=== PATIENT | female | born 1970 | race Two or more races ===

== ENCOUNTER 2021-08-20 16:26 | Outpatient (CLI) | payer OTHER, SELFPAY ==
--- NOTE | ~2021-08-20 | MM_ITS ---
EXAMINATION: MM screening doyle BI w gina HISTORY: Screening TECHNIQUE: Craniocaudal and mediolateral oblique 3-D tomosynthesis images were obtained and synthetic 2-D images were generated. CAD analysis was submitted and interpreted. COMPARISON: Comparison to multiple prior studies sequentially, with oldest reviewed study dated 02/2012. BREAST PARENCHYMAL COMPOSITION: The breasts are heterogeneously dense, which may obscure small masses . FINDINGS: There is no evidence of suspicious mass, calcification, or architectural distortion to sugg est malignancy in either breast. There has been no suspicious interval change. IMPRESSION: 1. No mammographic evidence of malignancy. 2. Recommend routine screening mammography in one year. BI-RADS Category 1: Negative Reviewed, dictated and finalized at location A.
== END 2021-08-20 16:27 | disposition home or self-care (01) ==
LOC: ANHIMG 16:29
PROVIDERS: PCP Family Medicine; Visit Provider Family Medicine
DX: Z12.31 Encounter for screening mammogram for malignant neoplasm of breast (principal)
CPT/HCPCS: 77063; 77067

== ENCOUNTER 2023-05-06 15:02 | Outpatient (CLI) | payer OTHER, SELFPAY ==
--- NOTE | ~2023-05-06 | MM_ITS ---
EXAMINATION: MM screening doyle BI w gina HISTORY: Screening mammogram TECHNIQUE: Craniocaudal and mediolateral oblique 3-D tomosynthesis images were obtained and synthetic 2-D images were generated. CAD analysis was submitted and interpreted. COMPARISON: 08/20/2021, 01/04/2019, 09/16/2015 bilateral screening mammogram examinations BREAST PARENCHYMAL COMPOSITION: The breasts are heterogeneously dense, which may obscure small masses . FINDINGS: There is no evidence of suspicious mass, calcification, or architectural distortion to sugg est malignancy in either breast. There has been no suspicious interval change. IMPRESSION: 1. No mammographic evidence of malignancy. 2. Recommend routine screening mammography in one year. BI-RADS Category 1: Negative Reviewed, dictated and finalized at location A.
== END 2023-05-06 15:03 | disposition home or self-care (01) ==
LOC: ANHIMG 15:04
PROVIDERS: PCP Family Medicine; Visit Provider Nurse Practitioner
DX: Z12.31 Encounter for screening mammogram for malignant neoplasm of breast (principal)
CPT/HCPCS: 77063; 77067

== ENCOUNTER 2024-08-22 08:22 | Outpatient (CLI) | payer OTHER, SELFPAY ==
--- NOTE | ~2024-08-22 | MM_ITS ---
EXAMINATION: MM screening doyle BI w gina HISTORY: Screening TECHNIQUE: Craniocaudal and mediolateral oblique 3-D tomosynthesis images were obtained and synthetic 2-D images were generated. CAD analysis was submitted and interpreted. COMPARISON: Comparison to multiple prior studies sequentially, with oldest reviewed study dated 09/07. BREAST PARENCHYMAL COMPOSITION: Dense: The breasts are heterogeneously dense, which may obscure small masses FINDINGS: There is no evidence of suspicious mass, calcification, or architectural distortion to sugg est malignancy in either breast. There has been no suspicious interval change. IMPRESSION: 1. No mammographic evidence of malignancy. 2. Recommend routine screening mammography in one year. BI-RADS Category 1: Negative Reviewed, dictated and finalized at location B.
== END 2024-08-22 08:23 | disposition home or self-care (01) ==
LOC: ANHIMG 08:26
PROVIDERS: PCP Family Medicine; Visit Provider Nurse Practitioner
DX: Z12.31 Encounter for screening mammogram for malignant neoplasm of breast (principal)
CPT/HCPCS: 77063; 77067

== ENCOUNTER 2025-01-17 10:59 | Outpatient (CLI) | payer BC, SELFPAY ==
--- NOTE | ~2025-01-17 | DEXA_ITS ---
Bone Density Report Name: CLARISSA VARMA Age: 54 Sex: Female Ethnicity: White Date of : 1970 Indication: postmenopausal; screening for osteoporosis; Referring Provider: BLESSING GUTIERREZ Study: Bone densitometry was performed. Exam Date: January 17, 2025 Accession number: [id number] Bone Density: Region BMD T-score Z-score Classification AP Spine(L1-L4) 0.744 -2.8 -1.6 Osteoporosis Femoral Neck (Left) 0.632 -2.0 -0.9 Osteopenia Total Hip (Left) 0.767 -1.4 -0.7 Osteopenia Femoral Neck (Right) 0.587 -2.4 -1.3 Osteopenia Total Hip (Right) 0.780 -1.3 -0.6 Osteopenia Total Hip Mean 0.774 -1.4 -0.7 Osteopenia World Health Organization criteria for BMD impression classify patients as: Normal (T-score at or above -1.0), Osteopenia (T-score between -1.0 and -2.5), or Osteoporosis (T-score at or below -2.5). 10-year Fracture Risk: FRAX not reported because: Some T-score for Spine Total or Hip Total or Femoral Neck at or below -2.5 Clinical Information Provided by Patient: Has used the following medications: HRT (i.e. estrogen/hormone therapy), Vitamin D Patient maximum height was 65 Menopause Age: 51 No regular weight bearing exercise Drinks caffeinated beverages Onset of menses at age 11 Number of children 2 Impression: The patient has osteoporosis, based on the Total Spine T-score. Discussion: INCREASED RISK OF FRACTURE. BONE DENSITY IS UNDESIRABLY LOW AT ONE OR MORE SKELETAL SITES, CONSISTENT WITH POSTMENOPAUSAL OSTEOPOROSIS. This patient's lowest T-score meets the World Health Organization's (WHO) criteria for osteoporosis at one or more sites (T-score -2.5 or below). In untreated patients, the risk of osteoporotic fracture increases approximately two-fold for each 1.0 SD decrease in T-score. Low bone density is not the only risk factor for fracture; also consider factors such as patient's age, frailty or poor health, risk of falling, risk of injury, previous osteoporotic fracture, family history of osteoporosis, cigarette smoking, low body weight, etc. Not everyone with low bone mineral density has osteoporosis; osteomalacia and other metabolic bone disorders should also be considered. Patients who have osteoporosis should be evaluated for specific diseases and conditions (secondary causes) that may cause or contribute to bone loss. The [place] [employer] (AACE) and National Osteoporosis Foundation (NOF) recommend pharmacologic intervention for all postmenopausal women whose T-score is in this range. The patient should follow a healthful lifestyle (good nutrition with adequate calcium and vitamin D, and appropriate weight-bearing exercise). Follow-Up: Consider a repeat BMD and Vertebral Fracture Assessment (VFA) exam in 2 years or sooner if medically necessary, to reassess this patient's status. Reported by: SABINO on 01/17/2025 11:36:00 AM. Reviewed, dictated and finalized at location [facility]
--- OUTSIDE RECORDS SUMMARY | 2025-01-17 12:49 | XMS_ITS | Clinical Summary ---
Author Organization [facility] Address [address] [place] [address] Care Team Providers Care Vegetable Specker Name Role Phone Audelia Sterling MD Primary Care Provider [phone] Source Comments [facility],non-owned Affiliates and Associated Physician Practices is amultiple site organization consisting of ambulatory clinics and hospital sitesin [place], [place], [place] and [place]. This disclosure is being madepursuant to the Care Everywhere program and may not contain all information available regarding this patient. Last updated 18.[facility] Allergies Active Allergy Reactions Criticality Noted Date Comments Penicillins Unknown,Rash Medium 09/06/2018 Medications * Be aware that medications may not be up to date on this document. Alwaysverify current medications with the patient. Medication Sig Dispensed Refills Start Date End Date Status methIMAzole (Tapazole) 5 MG tablet Take 1 (one) tablet by mouth once daily 90 tablet 1 11/22/2024 Active Active Problems Problem Noted Date Diagnosed Date Hyperthyroidism 06/18/2024 Multiple thyroid nodules 06/18/2024 Encounters Date Type Department Care Team Description 11/22/2024 Refill [facility] - Endocrinology [address], [address] [place] [address] Jimmie Gonzalez MD MEDICATION REFILL from Last 3 Months Family History Medical History Relation Name Comments COPD - Chronic Obstructive Pulmonary Disease Father Hypertension Mother Thyroid Disease Mother thyroid nddu le, benign Relation Name Status Comments Father Alive Mother Alive Social History Tobacco Use Types Packs/Day Years Used Date Smoking Tobacco: Never Smokeless Tobacco: Never Tobacco Cessation:Counseling Given: Not Answered Alcohol Use Standard Drinks/Week Comments Yes 0 (1 standard drink = 0.6 oz pur e alcohol) occasionally Sex and Gender Information Value Date Recorded Sex Assigned at Not on file Gender Identity Not on file Sexual Orientation Not on file Last Filed Vital Signs Vital Sign Reading Time Taken Comments Blood Pressure 100/66 10/11/2024 11:30 AM ICEBOX MAN Pulse - - Temperature - - Respiratory Rate - - Oxygen Saturation - - Inhaled Oxygen Concentration - - Weight 88.5 kg (195 lb) 10/11/2024 11:30 AM ICEBOX MAN Height 165.1 cm (5' 5 ) 10/11/2024 11:30 AM ICEBOX MAN Body Mass Index 32.45 10/11/2024 11:30 AM ICEBOX MAN Plan of Treatment Upcoming Encounters Date Type Department Care Team (Late st Contact Info) Description 02/18/2025 1:20 PM CDT Office Visit [facility] - Endocrinology [address] [place], [place] [phone] Jimmie Gonzalez MD [address] [place], [place] [phone] 03/27/2025 12:00 PM CDT Office Visit [facility] - Internal Medicine [address] [place] [id number] Isaiah Richards MD [address] [place] [id number] Health Maintenance Due Date Last Done Comments COLON MONITORING 1969 COLONOSCOPY - COLON CA SCREENING 1969 CT COLONOGRAPHY - COLON CA SCREENING 1969 FIT - COLON CA SCREENING 1969 FLEX SIG - COLON CA SCREENING 1969 LIPID TESTING 1969 HIV SCREENING 1984 HEPATITIS C SCREENING 07/16/1987 DTAP/TDAP/TD VACCINES (1 - Tdap) 1988 HEPATITIS B VACCINE (1 of 3 - 19+ 3-dose series) 1988 PNEUMOCOCCAL VACCINE 50+ (1 of 1 - PCV) 2019 ZOSTER VACCINE (1 of 2) 2019 MAMMOGRAM 01/04/2021 01/04/2019 PAP SMEAR 03/06/2022 03/06/2019 DEPRESSION SCREENING 11/07/2024 COLOGUARD (AGES 45-75) - COLON CA SCREENING 12/29/2025 12/29/2022 Colorectal Cancer Screening 12/29/2025 SCREENING FOR DIABETES 10/11/2027 , 07/25/2024, 06/18/2024 COVID-19 VACCINE Completed 07/10/2024, 05/2024, 07/14/2022, Additional history exists INFLUENZA VACCINE Completed 07/10/2024, , 08/30/2021, Additional history exists HIB VACCINE Aged Out No longer eligi ble based on patient's age to complete this topic HPV VACCINE Aged Out No longer eligi ble based on patient's age to complete this topic MENINGOCOCCAL (Group B) VACCINE SHARED DECISION-MAKING Aged Out No longer eligible based on patient's age to complete this topic MENINGOCOCCAL GROUPS A/C/Y/W VACCINE Aged Out No longer eligible based on patient's age to complete this topic PNEUMOCOCCAL VACCINE Aged Out No long er eligible based on patient's age to complete this topic Procedures Procedure Name Priority Date/Time Associated Diagnosis Comments COMPREHENSIVE METABOLIC PANEL Routine 10/11/2024 12:23 PM ICEBOX MAN Hyperthyroidism from Last 3 Months or Most Recently Relevant to Health Maintenance Results * (ABNORMAL) COMPREHENSIVE METABOLIC PANEL (10/11/2024 12:23 PM ICEBOX MAN) Glucose 97 70 - 99 mg/dL [facility] ACCOUNT BILL BUN 14 7 - 26 mg/dL [facility] ACCOUNT BILL Creatinine 0.81 0.57 - 1.11 mg/dL [facility] ACCOUNT BILL eGFR by CKD-EPI 86(L) >=90 mL/min/1.7 3 m2 [facility] ACCOUNT BILL Sodium 141 136 - 145 mmol/L [facility] ACCOUNT BILL Potassium 4.3 3.5 - 5.1 mmol/L [facility] ACCOUNT BILL Chloride 107 98 - 107 mmol/L [facility] ACCOUNT BILL CO2 25 22 - 29 mmol/L [facility] ACCOUNT BILL Calcium 8.8 8.4 - 10.4 mg/dL [facility] ACCOUNT BILL Protein Total 6.7 6.4 - 8.3 gm/dL [facility] ACCOUNT BILL Albumin 3.4 3.4 - 5.0 gm/dL [facility] ACCOUNT BILL Bilirubin Total 0.3 0.2 - 1.2 mg/dL [facility] ACCOUNT BILL Alkaline Phosphatase 139 40 - 150 U/L [facility] ACCOUNT BILL AST 14 5 - 34 U/L [facility] ACCOUNT BILL ALT 10 0 - 55 U/L [facility] ACCOUNT BILL Blood BLOOD SPECIMEN / Unknown 10/11/2024 12:23 PM ICEBOX MAN 10/11/2024 Narrative [facility] ACCOUNT BILL - 10/11/2024 8:07 PM ICEBOX MAN Performed at: [address] [place] [id number] Corner Cutter: Kieran Beasley MD, Phone: [phone] Jimmie Gonzalez MD LAB - CHEMISTRY ORD ERABLES [facility] ACCOUNT BILL [address] [place] [address] from Last 3 Months or Most Recently Relevant to Health Maintenance Care Teams Vegetable Specker Relationship Specialty Start Date End Date Audelia Sterling MD [address] [place] [address] PCP - General Family Medicine 02/14/24
--- OUTSIDE RECORDS SUMMARY | 2025-01-17 12:49 | XMS_ITS | Referral Summary ---
Author Organization [facility] Address [address] [facility] [place] [address] Care Team Providers Care Porter Baggage Name Role Phone Audelia Sterling MD Primary Care Provider [phone] Source Comments [facility],non-[facility] Affiliates and Associated Physician Practices is amultiple site organization consisting of ambulatory clinics and hospital sitesin [place], [place], [place]. This disclosure is being madepursuant to the Care Everywhere program and may not contain all information available regarding this patient. Last updated 18.[facility] Encounters Date Type Department Care Team Description 11/22/2024 Refill [facility] - Endocrinology [address] [place] [address], [address] [place] [phone] Jimmie Gonzalez MD MEDICATION REFILL from Last 3 Months Allergies Active Allergy Reactions Criticality Noted Date [...] Date Hyperthyroidism 06/18/2024 Multiple thyroid nodules 06/18/2024 Social History Tobacco Use Types Packs/Day Years [...] Comments Blood Pressure 100/66 10/11/2024 11:30 AM CHEMICAL OPERATOR Pulse - - Temperature - - Respiratory Rate - - Oxygen Saturation - - Inhaled Oxygen Concentration - - Weight 88.5 kg (195 lb) 10/11/2024 11:30 AM CHEMICAL OPERATOR Height 165.1 cm (5' 5 ) 10/11/2024 11:30 AM CHEMICAL OPERATOR Body Mass Index 32.45 10/11/2024 11:30 AM CHEMICAL OPERATOR Plan of Treatment Upcoming Encounters Date Type Department Care Team (Late st Contact Info) Description 02/18/2025 1:20 PM CDT Office Visit [facility] - Endocrinology [address] [place], [place] [phone] Jimmie Gonzalez MD [address] [place], [place] [phone] 03/27/2025 12:00 PM CDT Office Visit [facility] - Internal Medicine [address] [place], [place] [phone] Isaiah Richards MD [address] [place], [place] [phone] Procedures Procedure Name Priority Date/Time Associated Diagnosis Comments COMPREHENSIVE METABOLIC PANEL Routine 10/11/2024 12:23 PM CHEMICAL OPERATOR Hyperthyroidism from Last 3 Months or Most Recently Relevant to Health Maintenance Results * (ABNORMAL) COMPREHENSIVE METABOLIC PANEL (10/11/2024 12:23 PM CHEMICAL OPERATOR) Glucose 97 70 - 99 mg/dL [facility] [...] BLOOD SPECIMEN / Unknown 10/11/2024 12:23 PM CHEMICAL OPERATOR 10/11/2024 Narrative [facility] ACCOUNT BILL - 10/11/2024 8:07 PM CHEMICAL OPERATOR Performed at: [address] [place] [id number] Rock Loader: Kieran Beasley MD, Phone: [phone] Jimmie Gonzalez MD LAB - CHEMISTRY ORD ERABLES [facility] ACCOUNT BILL [address] [place] [address] from Last 3 Months or Most Recently Relevant to Health Maintenance Care Teams Porter Baggage Relationship Specialty Start Date End Date Audelia Sterling MD [address] [place] [address] PCP - General Family Medicine 02/14/24
--- OUTSIDE RECORDS SUMMARY | 2025-01-17 12:49 | XMS_ITS | Patient Health Summary ---
Author Organization [facility] Address [address] [place] [address] Care Team Providers Care Head Of Music Name Role Phone Audelia Sterling MD Primary Care Provider [phone] Note from [facility],non-owned Affiliates and Associated Physician Practices is amultiple site organization consisting of ambulatory clinics and hospital sitesin [place], [place], [place] and [place]. This disclosure is being madepursuant to the Care Everywhere program and may not contain all information available regarding this patient. Last updated 18.[facility] Allergies * Penicillins(Unknown,Rash) -Medium Criticality Medications * Be aware that medications may not be up to date on this document. Alwaysverify current medications with the patient. * methIMAzole (Tapazole) 5 MG tablet(Started 11/22/2024) Take 1 (one) tablet by mouth once daily 1 refill by 11/22/2025 Active Problems Problem Noted Date Diagnosed Date [...] Comments Blood Pressure 100/66 10/11/2024 11:30 AM MECHANICAL ENGINEERING DRAFTSPERSON Pulse - - Temperature - - Respiratory Rate - - Oxygen Saturation - - Inhaled Oxygen Concentration - - Weight 88.5 kg (195 lb) 10/11/2024 11:30 AM MECHANICAL ENGINEERING DRAFTSPERSON Height 165.1 cm (5' 5 ) 10/11/2024 11:30 AM MECHANICAL ENGINEERING DRAFTSPERSON Body Mass Index 32.45 10/11/2024 11:30 AM MECHANICAL ENGINEERING DRAFTSPERSON Procedures * T3 FREE(Performed 10/11/2024) Performed for Hyperthyroidism * COMPREHENSIVE METABOLIC PANEL(Performed 10/11/2024) Performed for Hyperthyroidism * T4 FREE(Performed 10/11/2024) Performed for Hyperthyroidism * TSH(Performed 10/11/2024) Performed for Hyperthyroidism * T3 FREE(Performed 07/25/2024) Performed for Hyperthyroidism * COMPREHENSIVE METABOLIC PANEL(Performed 07/25/2024) Performed for Hyperthyroidism * TSH(Performed 07/25/2024) Performed for Hyperthyroidism * T4 FREE(Performed 07/25/2024) Performed for Hyperthyroidism * T3 FREE(Performed 06/18/2024) Performed for Hyperthyroidism * COMPREHENSIVE METABOLIC PANEL(Performed 06/18/2024) Performed for Hyperthyroidism * T4 FREE(Performed 06/18/2024) Performed for Hyperthyroidism * TSH(Performed 06/18/2024) Performed for Hyperthyroidism * NM THYROID UPTAKE AND SCAN(Performed 03/15/2024) Performed for Hyperthyroidism * IMAGING/RADIOLOGY/XRAY RESULTS ORDER(Performed 03/13/2024) * THYROGLOBULIN PANEL(Performed 02/23/2024) Performed for Borderline abnormal TFTs, Thyroid nodule * FSH(Performed 02/23/2024) Performed for Borderline abnormal TFTs, Thyroid nodule * PROLACTIN(Performed 02/23/2024) Performed for Borderline abnormal TFTs, Thyroid nodule * THYROID STIMULATING IMMUNOGLOBULIN (TSI)(Performed 02/23/2024) Performed for Borderline abnormal TFTs, Thyroid nodule * TSH(Performed 02/23/2024) Performed for Borderline abnormal TFTs, Thyroid nodule * T3 FREE(Performed 02/23/2024) Performed for Borderline abnormal TFTs, Thyroid nodule * T4 FREE(Performed 02/23/2024) Performed for Borderline abnormal TFTs, Thyroid nodule * LAB RESULTS ORDER(Performed 06/25/2023) * T3 FREE (EXTERNAL RESULT)(Performed 06/25/2023) * T4 FREE (EXTERNAL RESULT ENTRY)(Performed 06/25/2023) * TSH (EXTERNAL RESULT ENTRY)(Performed 06/25/2023) Results * T3 FREE (10/11/2024 12:24 PM MECHANICAL ENGINEERING DRAFTSPERSON) Only the most recent of4 resultswithin the time period is included. T3 Free 3.00 1.70 - 3.70 pg/mL [facility] ACCOUNT BILL Blood BLOOD SPECIMEN / Unknown 10/11/2024 12:24 PM MECHANICAL ENGINEERING DRAFTSPERSON 10/11/2024 Narrative [facility] ACCOUNT BILL - 10/11/2024 8:07 PM MECHANICAL ENGINEERING DRAFTSPERSON Performed at: [address] [place] [address] [id number] Coin Collector: Kieran Beasley MD, Phone: [phone] Jimmie Gonzalez MD LAB - CHEMISTRY ORD ERABLES [facility] ACCOUNT BILL [address] [place] [address] * (ABNORMAL) COMPREHENSIVE METABOLIC PANEL (10/11/2024 12:23 PM MECHANICAL ENGINEERING DRAFTSPERSON) Only the most recent of3 resultswithin the time period is included. Glucose 97 70 - 99 mg/dL [facility] [...] BLOOD SPECIMEN / Unknown 10/11/2024 12:23 PM MECHANICAL ENGINEERING DRAFTSPERSON 10/11/2024 Narrative [facility] ACCOUNT BILL - 10/11/2024 8:07 PM MECHANICAL ENGINEERING DRAFTSPERSON Performed at: [address] [place] [id number] Coin Collector: Kieran Beasley MD, Phone: [phone] Jimmie Gonzalez MD LAB - CHEMISTRY ORD ERABLES Performing Organization Address City/[facility]/ZIP Co de Phone Number [facility] ACCOUNT BILL [address] [place] [address] * TSH (10/11/2024 12:23 PM MECHANICAL ENGINEERING DRAFTSPERSON) Only the most recent of4 resultswithin the time period is included. TSH 0.9266 0.35 - 4.94 uIU/mL [facility] ACCOUNT BILL Blood BLOOD SPECIMEN / Unknown 10/11/2024 12:23 PM MECHANICAL ENGINEERING DRAFTSPERSON 10/11/2024 Narrative [facility] ACCOUNT BILL - 10/11/2024 8:07 PM MECHANICAL ENGINEERING DRAFTSPERSON Performed at: [address] [place] [address] [id number] Coin Collector: Kieran Beasley MD, Phone: [phone] Jimmie Gonzalez MD LAB - CHEMISTRY ORD ERABLES Performing Organization Address City/[facility] Co de Phone Number [facility] ACCOUNT BILL [address] [place] [address] * T4 FREE (10/11/2024 12:23 PM MECHANICAL ENGINEERING DRAFTSPERSON) Only the most recent of4 resultswithin the time period is included. T4 Free 0.86 0.70 - 1.50 ng/dL [facility] ACCOUNT BILL Blood BLOOD SPECIMEN / Unknown 10/11/2024 12:23 PM MECHANICAL ENGINEERING DRAFTSPERSON 10/11/2024 Narrative [facility] ACCOUNT BILL - 10/11/2024 8:07 PM MECHANICAL ENGINEERING DRAFTSPERSON Performed at: [address] [place] [phone] Coin Collector: Kieran Beasley MD, Phone: [phone] Jimmie Gonzalez MD LAB - CHEMISTRY ORD ERABLES [facility] ACCOUNT [place]ILL [place] [address] * NM THYROID UPTAKE AND SCAN (03/15/2024 8:59 AM CDT) Anatomical Region Laterality Modality Chest Nuclear Medicine 03/15/2024 10:1 5 AM CDT Impressions 03/15/2024 10:24 AM CDT Impression: 1. Large autonomous nodule in the right lobe of the thyroid gland 2. Elevated 24 hours thyroid uptake of 35.1%. > Interpreting Provider: Gretta West DO on 03/15/2024 10:24 AM Narrative 03/15/2024 10:24 AM CDT PROCEDURE: NM THYROID UPTAKE AND SCAN DATE/TIME OF EXAM: 03/15/2024 8:59 AM CLINICAL INFORMATION: None relevant/not provided if blank. Indication: E05.90: Thyrotoxicosis, unspecified without thyrotoxic crisis or storm COMPARISON: Ultrasound report from 03/13/2024 HISTORY: 53-year-old with hyperthyroidism. TECHNIQUE: 300 uCi I-123 was administered orally and multiple images of the neck were obtained after 4 hours. The patient returned the following day and counts were measured. FINDINGS: Images of the thyroid gland demonstrate the the left lobe is small with minimal uptake at the upper pole. The right lobe is larger with a large intensely avid dominant nodule in the upper to mid pole. This nodule suppresses the uptake of the remainder of the thyroid gland. The 24-hour uptake is 35.1% (normal is 10-30%). Procedure Note Gretta West DO - 03/15/2024 PROCEDURE: NM THYROID UPTAKE AND SCAN DATE/TIME OF EXAM: 03/15/2024 8:59 AM CLINICAL INFORMATION: None relevant/not provided if blank. Indication: E05.90: Thyrotoxicosis, unspecified without thyrotoxiccrisis or storm COMPARISON: Ultrasound report from 03/13/2024 HISTORY: 53-year-old with hyperthyroidism. TECHNIQUE: 300 uCi I-123 was administered orally and multiple images ofthe neck were obtained after 4 hours. The patient returned the following day and counts were measured. FINDINGS: Images of the thyroid gland demonstrate the the left lobe is small with minimal uptake at the upper pole. The right lobe is largerwith a large intensely avid dominant nodule in the upper to mid pole. This nodule suppresses the uptake of the remainder of the thyroid gland. The 24-hour uptake is 35.1% (normal is 10-30%). Impression: 1. Large autonomous nodule in the right lobe of the thyroid gland 2. Elevated 24 hours thyroid uptake of 35.1%. > Interpreting Provider: Gretta West DO on 03/15/2024 10:24 AM Jimmie Gonzalez MD NM ORDERABLES * IMAGING RADIOLOGY XRAY RESULTS ORDER (03/13/2024 7:48 AM CDT) Anatomical Region Laterality Modality Other Jimmie Gonzalez MD IMAGING * (ABNORMAL) THYROGLOBULIN PANEL (02/23/2024 1:35 PM CDT) Thyroglobulin Antibody <1 < or = 1 IU/mL [facility] Thyroglobulin 93.9(H) ng/mL [facility] Comment: Reference Range: Intact Thyroid 2.8-40.9 Athyrotic <0.1 Note: Abnormal flagging is based on the reference interval for patients with intact thyroid. This test was performed using the Branden Nano chemiluminescent method. Values obtained from different assay methods cannot be used interchangeably. Thyroglobulin levels, regardless of value, should not be interpreted as absolute evidence of the presence or absence of disease. For additional information, please refer to http://education.Fullbridge.WakeMate/faq/PZN479 (This link is being provided for informational/ educational purposes only.) Test Performed at: [facility] [address] [address] GUILLERMO SPEARS Blood BLOOD SPECIMEN / Unknown 02/23/2024 1:35 PM CDT 02/23/2024 1:36 PM CDT Jimmie Gonzalez MD LAB - CHEMISTRY ORD ERABLES [facility] [place] [address] * THYROID STIMULATING IMMUNOGLOBULIN (TSI) (02/23/2024 1:35 PM CDT) Thyroid Stimulating Immunoglobulin <89 <140 % baseline [facility] Comment: Thyroid stimulating immunoglobulins (TSI) can engage the TSH receptors resulting in hyperthyroidism in Graves' disease patients. TSI levels can be useful in monitoring the clinical outcome of Graves' disease as well as assessing the potential for hyperthyroidism from maternal- transfer. TSI results greater than or equal to (>=) 140% of the Reference Control are considered positive. NOTE: A serum TSH level greater than 350 micro-International Units/mL can interfere with the TSI bioassay and potentially give false positive results. Patients who are and are suspected of having hyperthyroidism should have both TSI and human Chorionic Gonadotropin (hCG) tests measured. A serum hCG level greater than 40,625 mIU/mL can interfere with the TSI bioassay and may give false negative results. In these patients it is recommended that a second TSI be obtained when the hCG concentration falls below 40,625 mIU/mL (usually after approximately 20-weeks gestation). The analytical performance characteristics of this assay have been determined by [facility]. The modifications have not been cleared or approved by the FDA. This assay has been validated pursuant to the CLIA regulations and is used for clinical purposes. Test Performed at: [facility] [address] [place] [address] TARA SURESH MD,PHD,IVANA Blood BLOOD SPECIMEN / Unknown 02/23/2024 1:35 PM CDT 02/23/2024 1:36 PM CDT Jimmie Gonzalez MD LAB - CHEMISTRY ORD ERABLES [facility] [address] [place] [address] * PROLACTIN (02/23/2024 1:35 PM CDT) Prolactin 4.9 ng/mL [facility] Comment: Reference Range Females Non- 3.0-30.0 10.0-209.0 Postmenopausal 2.0-20.0 Test Performed at: [facility] [address] [place] [address] KERRY CARDOSO MD Blood BLOOD SPECIMEN / Unknown 02/23/2024 1:35 PM CDT 02/23/2024 1:36 PM CDT Jimmie Gonzalez MD LAB - CHEMISTRY ORD ERABLES Performing Organization Address [facility]/ZIP Co de Phone Number [address] [address] * FSH (02/23/2024 1:35 PM CDT) Pathologist [facility] FSH 107.9 mIU/mL [facility] Comment: Reference Range Follicular Phase 2.5-10.2 Mid-cycle Peak 3.1-17.7 Luteal Phase 1.5- 9.1 Postmenopausal 23.0-116.3 Test Performed at: [place] [address] KERRY CARDOSO MD Blood BLOOD SPECIMEN / Unknown 02/23/2024 1:35 PM CDT 02/23/2024 1:36 PM CDT Jimmie Gonzalez MD LAB - CHEMISTRY ORD ERABLES Performing Organization Address [facility] Co de Phone Number [place] [phone] * T3 FREE (EXTERNAL RESULT) (06/25/2023) Pathologist [facility] T3 Free (EXTERNAL RESULT) 4.1 Blood 06/25/2023 Provider Unknown LAB - CHEMISTRY ORDE RABLES * TSH (EXTERNAL RESULT ENTRY) (06/25/2023) Pathologist [facility] TSH (EXTERNAL RESULT) 0.01 uIU/mL Blood BLOOD SPECIMEN / Unknown 06/25/2023 Provider Unknown LAB - CHEMISTRY ORDE RABLES * T4 FREE (EXTERNAL RESULT ENTRY) (06/25/2023) Pathologist [facility] T4 Free (EXTERNAL RESULT) 1 ng/dl Blood BLOOD SPECIMEN / Unknown 06/25/2023 Provider Unknown LAB - CHEMISTRY MARIAM [facility] * LAB RESULTS ORDER (06/25/2023) Provider Unknown LAB - THERAPEUTIC DR RAMÍREZ MONITORING ORDERABLES Care Teams Head Of Music Relationship Specialty Start Date End Date Audelia Sterling MD [address] [place] [address] PCP - General Family Medicine 02/14/24
--- OUTSIDE RECORDS SUMMARY | 2025-01-17 12:49 | XMS_ITS | Data Portability ---
Author Organization [place] [facility] [employer], Main Office Address [address] [place] [address] Care Team Providers Care Control Room Agent Name Role Phone LULÚ STERLING Referring Provider [phone] Assessment No assessment recorded. Plan of Treatment Reminders Order Date Submit Date Provider Last Modified By Organization Details Last Modified Time Details Appointments None recorded. Lab CBC w/ auto diff 2022 023 ZACK Hernandez, [id number], [place], [address], 3 06:35:19 CMP, serum or plasma 2022 023 ZACK Hernandez, [id number], [place], [address], 3 06:35:16 vitamin B12 + folate, serum or blood 2022 023 ZACK Hernandez, [id number], [place], [address], 3 06:35:22 cortisol, am, serum 2022 023 ZACK Hernandez, [id number], [place], [address], 3 06:35:21 acth, plasma 2022 023 ZACK Hernandez, [id number], [place], [address], 3 06:35:17 KAILASH (antinuclea r antibodies) screen, serum 2022 023 [facility], [address], [place], [address], 3 11:32:15 TSH + free T4, serum 2022 023 [place] [facility], [address], [place], [address], 3 06:35:23 T3, free, serum or plasma 2022 023 [place] [facility], [address], [place], [address], 3 06:35:23 thyroid peroxidase (tpo) Ab, serum 2022 023 [facility], [address], [place], [address], 3 06:35:21 iodine, serum 2022 023 [facility], [address], [place], [address], 3 06:35:18 Referral None recorded. Procedures None recorded. Surgeries None recorded. Imaging None recorded. Medication Orders None recorded. Patient TargetsNo targets recorded. Patient InstructionsNo instructions recorded. Reason for Referral None Reported. Results Created Date Observation Date Name Description Value Unit Range Abnormal Flag Note LastModifiedBy Organization Detail LastModifiedTime 04/22/2004/29/2023 COMPR EHENS PATSY METAB OLIC PANEL glucose 92 mg/dL 65-99 normal Fasti ng refer ence inter bob Not Available [employer] [facility] [address] [place], [address], 04/29/2023 06:35:16 04/22/2004/29/2023 COMPR EHENS PATSY METAB OLIC PANEL urea nitrogen (BUN) 13 mg/dL 7-25 normal Not Available [employer] [facility] [address] [place], [address], 04/29/2023 06:35:16 04/22/2004/29/2023 COMPR EHENS PATSY METAB OLIC PANEL creatinine 0.70 mg/dL 0.50-1 .03 normal Not Available [address], [address], 04/29/2023 06:35:16 04/22/2004/29/2023 COMPR EHENS PATSY METAB OLIC PANEL eGFR 103 mL/mi n/1.7 3m2 > or = 60 normal The eGFR is based on the CKD-E PI 2020 equat ion. To calcu late the new eGFR from a previ ous Creat inine or Cysta tin C resul t, go to https ://amber millan.chrissy trevizo/sarthak kelleress evelineal s/ kdoqi /gfr% 5Fcal culat or Not Available [address], [address], 04/29/2023 06:35:16 04/22/2004/29/2023 COMPR EHENS PATSY METAB OLIC PANEL BUN/creatini ne ratio NOT APPLIC ABLE (calc ) 6-22 Not Available [address], [address], 04/29/2023 06:35:16 04/22/2004/29/2023 COMPR EHENS PATSY METAB OLIC PANEL sodium 143 mmol/ L 135-14 6 normal Not Available [address], [address], 04/29/2023 06:35:16 04/22/2004/29/2023 COMPR EHENS PATSY METAB OLIC PANEL potassium 4.2 mmol/ L 3.5-5. 3 normal Not Available [address], [address], 04/29/2023 06:35:16 04/22/2004/29/2023 COMPR EHENS PATSY METAB OLIC PANEL chloride 106 mmol/ L 98-110 normal Not Available [address], [address], 04/29/2023 06:35:16 04/22/2004/29/2023 COMPR EHENS PATSY METAB OLIC PANEL carbon dioxide 30 mmol/ L 20-32 normal Not Available [address], [address], 04/29/2023 06:35:16 04/22/2004/29/2023 COMPR EHENS PATSY METAB OLIC PANEL calcium 9.3 mg/dL 8.6-10 .4 normal Not Available [address], [address], 04/29/2023 06:35:16 04/22/2004/29/2023 COMPR EHENS PATSY METAB OLIC PANEL protein, total 6.7 g/dL 6.1-8. 1 normal Not Available [address], [address], 04/29/2023 06:35:16 04/22/2004/29/2023 COMPR EHENS PATSY METAB OLIC PANEL albumin 3.9 g/dL 3.6-5. 1 normal Not Available [address], [address], 04/29/2023 06:35:16 04/22/2004/29/2023 COMPR EHENS PATSY METAB OLIC PANEL globulin 2.8 g/dL_ (calc ) 1.9-3. 7 normal Not Available [address], [address], 04/29/2023 06:35:16 04/22/2004/29/2023 COMPR EHENS PATSY METAB OLIC PANEL albumin/glob ulin ratio 1.4 (calc ) 1.0-2. 5 normal Not Available [address] [place], [address], 04/29/2023 06:35:16 04/22/2004/29/2023 COMPR EHENS PATSY METAB OLIC PANEL bilirubin, total 0.5 mg/dL 0.2-1. 2 normal Not Available [address], [address], 04/29/2023 06:35:16 04/22/2004/29/2023 COMPR EHENS PATSY METAB OLIC PANEL alkaline phosphatase 118 U/L 37-153 normal Not Available [facility] [employer] [address], [address], 04/29/2023 06:35:16 04/22/2004/29/2023 COMPR EHENS PATSY METAB OLIC PANEL AST 11 U/L 10-35 normal Not Available [address], [address], 04/29/2023 06:35:16 04/22/2004/29/2023 COMPR EHENS PATSY METAB OLIC PANEL ALT 13 U/L 6-29 normal Not Available [address], [address], 04/29/2023 06:35:16 04/22/2004/29/2023 ACTH, PLASM A acth, plasma 22 pg/mL 6-50 Refer ence range appli es only to speci mens colle cted betwe en 7am-1 0am. Not Available [facility] [employer] [address], [address], 04/29/2023 06:35:17 04/22/2004/29/2023 IODIN E, SERUM /PLAS MA iodine, serum/plasma 77 mcg/L 52-109 This test was devel oped and its cammie tical perfo rmanc e laina cteri stics have been deter mined by [facility] Saroj Petersi JORDON Jackson. It has not been clear ed or appro alaina by the U.S. Food and Drug Admin istra tion. This assay has been valid ated pursu ant to the CLIA regul ation s and is used for clini josephine purpo ses. Not Available [employer] [address], [address], 04/29/2023 06:35:18 04/22/2004/29/2023 CBC (INCL UDES DIFF/ PLT) white blood cell count 6.8 thous and/u L 3.8-10 .8 normal Not Available [employer] [facility] [address], [address], 04/29/2023 06:35:19 04/22/2004/29/2023 CBC (INCL UDES DIFF/ PLT) red blood cell count 4.60 trudi on/uL 3.80-5 .10 normal Not Available [employer] [facility] [address], [address], 04/29/2023 06:35:19 04/22/2004/29/2023 CBC (INCL UDES DIFF/ PLT) hemoglobin 12.8 g/dL 11.7-1 5.5 normal Not Available [employer] [address], [address], 04/29/2023 06:35:19 04/22/2004/29/2023 CBC (INCL UDES DIFF/ PLT) hematocrit 38.7 % 35.0-4 5.0 normal Not Available [employer] [facility] [address], [address], 04/29/2023 06:35:19 04/22/2004/29/2023 CBC (INCL UDES DIFF/ PLT) MCV 84.1 fL 80.0-1 00.0 normal Not Available [employer] [facility] [address], [address], 04/29/2023 06:35:19 04/22/2004/29/2023 CBC (INCL UDES DIFF/ PLT) MCH 27.8 pg 27.0-3 3.0 normal Not Available [address], [address], 04/29/2023 06:35:19 04/22/2004/29/2023 CBC (INCL UDES DIFF/ PLT) MCHC 33.1 g/dL 32.0-3 6.0 normal Not Available [address], [address], 04/29/2023 06:35:19 04/22/2004/29/2023 CBC (INCL UDES DIFF/ PLT) RDW 12.9 % 11.0-1 5.0 normal Not Available [address], [address], 04/29/2023 06:35:19 04/22/2004/29/2023 CBC (INCL UDES DIFF/ PLT) platelet count 301 thous and/u L 140-40 0 normal Not Available [address], [address], 04/29/2023 06:35:19 04/22/2004/29/2023 CBC (INCL UDES DIFF/ PLT) MPV 11.1 fL 7.5-12 .5 normal Not Available [address], [address], 04/29/2023 06:35:19 04/22/2004/29/2023 CBC (INCL UDES DIFF/ PLT) absolute neutrophils 3801 cells /uL 1500-7 800 normal Not Available [address], [address], 04/29/2023 06:35:19 04/22/2004/29/2023 CBC (INCL UDES DIFF/ PLT) absolute lymphocytes 2353 cells /uL 850-39 00 normal Not Available [address], [address], 04/29/2023 06:35:19 04/22/2004/29/2023 CBC (INCL UDES DIFF/ PLT) absolute monocytes 530 cells /uL 200-95 0 normal Not Available [facility] [address], [address], 04/29/2023 06:35:19 04/22/2004/29/2023 CBC (INCL UDES DIFF/ PLT) absolute eosinophils 88 cells /uL 15-500 normal Not Available [facility] [address], [address], 04/29/2023 06:35:19 04/22/2004/29/2023 CBC (INCL UDES DIFF/ PLT) absolute basophils 27 cells /uL 0-200 normal Not Available [address], [address], 04/29/2023 06:35:19 04/22/2004/29/2023 CBC (INCL UDES DIFF/ PLT) neutrophils 55.9 % normal Not Available [address], [address], 04/29/2023 06:35:19 04/22/2004/29/2023 CBC (INCL UDES DIFF/ PLT) lymphocytes 34.6 % normal Not Available [facility] [address], [address], 04/29/2023 06:35:19 04/22/2004/29/2023 CBC (INCL UDES DIFF/ PLT) monocytes 7.8 % normal Not Available [address], [address], 04/29/2023 06:35:19 04/22/2004/29/2023 CBC (INCL UDES DIFF/ PLT) eosinophils 1.3 % normal Not Available [facility] [address] [place], [address], 04/29/2023 06:35:19 04/22/2004/29/2023 CBC (INCL UDES DIFF/ PLT) basophils 0.4 % normal Not Available [address], [place], [address], 04/29/2023 06:35:19 04/22/2004/29/2023 KAILASH SCREE N, IFA, W/REF L TITER AND PATTE RN KAILASH screen, ifa POSITI VE negati ve abnormal KAILASH IFA is a first line scree n for detec ting the prese nce of up to appro ximat delia 150 autoa ntibo dies in vario us autoi mmune disea ses. A posit patsy KAILASH IFA resul t is sugge stive of autoi mmune disea se and refle xes to titer and patte rn. Furth er labor atory testi ng may be consi dered if clini eyad indic ated. For addit ional infor david galvan e refer to http: //[facility] deniz matamoros.Que stDia gnost ics.c om/fa q/FAQ 177 (This link is being provi ded for infor tyra chamberlain/ educlawrence brar l purpo ses only. ) Not Available [address], [place], [address], 04/29/2023 06:35:20 04/22/2004/29/2023 ANTIN UCLEA R ANTIB ODIES TITER AND PATTE RN KAILASH titer 1:40 titer high A low level KAILASH titer may be prese nt in pre-c linic al autoi mmune disea ses and monika l indiv idual s. Refer ence Range <1:40 Negat patsy 1:40- 1:80 Low Antib shivani Level >1:80 [place] miguel Antib shivani Level Not Available [address], [place], [address], 04/29/2023 06:35:20 04/22/2004/29/2023 ANTIN UCLEA R ANTIB ODIES TITER AND PATTE RN KAILASH pattern Nuclea r, Speckl ed abnormal Speck led patte rn is assoc iated with mixed conne ctive tissu e disea se (MCTD ), syste samaria lupus eryth emato pavan (SLE) , Sjogr en's syndr ome, derma tomyo sitis , and syste samaria scler osis/ polym yosit is overl ap. AC-2, 4,5,2 9: Speck led Inter natio nal Conse nsus on KAILASH Patte rns (http s://d oi.or g/10. 6385/ [facility]- 2017- 0052) Not Available [employer] [address] [address] [place], [address], 04/29/2023 06:35:20 04/22/2004/29/2023 THYRO ID PEROX IDASE ANTIB ODIES thyroid peroxidase antibodies 3 IU/mL <9 Not Available [employer] [address] [address] [place], [address], 04/29/2023 06:35:21 04/22/2004/29/2023 CORTI CHRISTIANO, A.M. cortisol, A.M. 20.0 mcg/d L normal Refer ence Range 8 a.m. (7-9 a.m.) Speci men: 4.0-2 2.0 Not Available [employer] [facility] [address] [place], [address], 04/29/2023 06:35:21 04/22/2004/29/2023 VITAM IN B12/F OLATE , SERUM PANEL vitamin B12 382 pg/mL 200-11 00 normal Pleas e Note: Altho ugh the refer ence range for vitam in B12 is 200-1 100 pg/mL , it has been repor miguel that betwe en 5 and 10% of patie nts with value s betwe en 200 and 400 pg/mL may exper ience neuro psych iatri c and hemat ologi c abnor malit ies due to occul t B12 defic iency ; less than 1% of patie nts with value s above 400 pg/mL will have sympt oms. Not Available [employer] [address], [address], 04/29/2023 06:35:22 04/22/2004/29/2023 VITAM IN B12/F OLATE , SERUM PANEL folate, serum 10.2 NG/mL normal Refer ence Range Low: <3.4 Borde rline : 3.4-5 .4 Monika l: >5.4 Not Available [address], [address], 04/29/2023 06:35:22 04/22/2004/29/2023 T3, FREE T3, free 4.5 pg/mL 2.3-4. 2 high Not Available [employer] [address], [address], 04/29/2023 06:35:23 04/22/2004/29/2023 TSH+F REE T4 TSH 0.01 mIU/L low Refer ence Range > or = 20 Years 0.40- 4.50 Pregn caden Range s First trime ster 0.26- 2.66 Secon d trime ster 0.55- 2.73 Third trime ster 0.43- 2.91 Not Available [employer] [address], [address], 04/29/2023 06:35:23 04/22/2004/29/2023 TSH+F REE T4 T4, free 1.1 NG/dL 0.8-1. 8 normal Not Available [employer] [address], [address], 04/29/2023 06:35:23 06/25/2007/01/2023 COMPR EHENS PATSY METAB OLIC PANEL glucose 92 mg/dL 65-99 normal Fasti ng refer ence inter bob Not Available [employer] [address], [address], 07/01/2023 15:29:31 06/25/20 23 07/01/2023 COMPR EHENS PATSY METAB OLIC PANEL urea nitrogen (BUN) 10 mg/dL 7-25 normal Not Available [address], [address], 07/01/2023 15:29:31 06/25/20 23 07/01/2023 COMPR EHENS PATSY METAB OLIC PANEL creatinine 0.63 mg/dL 0.50-1 .03 normal Not Available [address], [address], 07/01/2023 15:29:31 06/25/20 23 07/01/2023 COMPR EHENS PATSY METAB OLIC PANEL eGFR 106 mL/mi n/1.7 3m2 > or = 60 normal Not Available [address], [address], 07/01/2023 15:29:31 06/25/20 23 07/01/2023 COMPR EHENS PATSY METAB OLIC PANEL BUN/creatini ne ratio SEE NOTE: (calc ) 6-22 Not Repor miguel: BUN and Creat inine are withi n refer ence range . Not Available [address], [place], [address], 07/01/2023 15:29:31 06/25/20 23 07/01/2023 COMPR EHENS PATSY METAB OLIC PANEL sodium 141 mmol/ L 135-14 6 normal Not Available [address] [place], [address], 07/01/2023 15:29:31 06/25/20 23 07/01/2023 COMPR EHENS PATSY METAB OLIC PANEL potassium 4.2 mmol/ L 3.5-5. 3 normal Not Available [address], [address], 07/01/2023 15:29:31 06/25/20 23 07/01/2023 COMPR EHENS PATSY METAB OLIC PANEL chloride 107 mmol/ L 98-110 normal Not Available [address], [address], 07/01/2023 15:29:31 06/25/20 23 07/01/2023 COMPR EHENS PATSY METAB OLIC PANEL carbon dioxide 30 mmol/ L 20-32 normal Not Available [address], [address], 07/01/2023 15:29:31 06/25/20 23 07/01/2023 COMPR EHENS PATSY METAB OLIC PANEL calcium 9.0 mg/dL 8.6-10 .4 normal Not Available [address], [address], 07/01/2023 15:29:31 06/25/20 23 07/01/2023 COMPR EHENS PATSY METAB OLIC PANEL protein, total 6.6 g/dL 6.1-8. 1 normal Not Available [address], [address], 07/01/2023 15:29:31 06/25/20 23 07/01/2023 COMPR EHENS PATSY METAB OLIC PANEL albumin 3.6 g/dL 3.6-5. 1 normal Not Available [address], [address], 07/01/2023 15:29:31 06/25/20 23 07/01/2023 COMPR EHENS PATSY METAB OLIC PANEL globulin 3.0 g/dL_ (calc ) 1.9-3. 7 normal Not Available [address], [address], 07/01/2023 15:29:31 06/25/20 23 07/01/2023 COMPR EHENS PATSY METAB OLIC PANEL albumin/glob ulin ratio 1.2 (calc ) 1.0-2. 5 normal Not Available [facility] [address] [address], [place], [address], 07/01/2023 15:29:31 06/25/20 23 07/01/2023 COMPR EHENS PATSY METAB OLIC PANEL bilirubin, total 0.5 mg/dL 0.2-1. 2 normal Not Available [address], [address], 07/01/2023 15:29:31 06/25/20 23 07/01/2023 COMPR EHENS PATSY METAB OLIC PANEL alkaline phosphatase 103 U/L 37-153 normal Not Available [facility] [employer] [address], [address], 07/01/2023 15:29:31 06/25/20 23 07/01/2023 COMPR EHENS PATSY METAB OLIC PANEL AST 17 U/L 10-35 normal Not Available [address], [address], 07/01/2023 15:29:31 06/25/20 23 07/01/2023 COMPR EHENS PATSY METAB OLIC PANEL ALT 21 U/L 6-29 normal Not Available [address], [address], 07/01/2023 15:29:31 06/25/20 23 07/01/2023 ACTH, PLASM A acth, plasma 21 pg/mL 6-50 Refer ence range appli es only to speci mens colle cted betwe en 7am-1 0am. Not Available [address], [address], 07/01/2023 15:29:33 06/25/20 23 07/01/2023 IODIN E, SERUM /PLAS MA iodine, serum/plasma 68 mcg/L 52-109 This test was devel oped and its cammie tical perfo rmanc e laina cteri stics have been deter mined by [facility] [place]. It has not been clear ed or appro alaina by the U.S. Food and Drug Admin istra tion. This assay has been valid ated pursu ant to the CLIA regul ation s and is used for clini josephine purpo ses. Not Available [employer] [address] [address] [address] [place], [address], 07/01/2023 15:29:33 06/25/20 23 07/01/2023 CBC (INCL UDES DIFF/ PLT) white blood cell count 6.2 thous and/u L 3.8-10 .8 normal Not Available [employer] [address], [address], 07/01/2023 15:29:34 06/25/20 23 07/01/2023 CBC (INCL UDES DIFF/ PLT) red blood cell count 4.33 trudi on/uL 3.80-5 .10 normal Not Available [employer] [address], [address], 07/01/2023 15:29:34 06/25/20 23 07/01/2023 CBC (INCL UDES DIFF/ PLT) hemoglobin 11.7 g/dL 11.7-1 5.5 normal Not Available [employer] [address], [address], 07/01/2023 15:29:34 06/25/20 23 07/01/2023 CBC (INCL UDES DIFF/ PLT) hematocrit 37.0 % 35.0-4 5.0 normal Not Available [employer] [address], [address], 07/01/2023 15:29:34 06/25/20 23 07/01/2023 CBC (INCL UDES DIFF/ PLT) MCV 85.5 fL 80.0-1 00.0 normal Not Available [employer] [address], [address], 07/01/2023 15:29:34 06/25/20 23 07/01/2023 CBC (INCL UDES DIFF/ PLT) MCH 27.0 pg 27.0-3 3.0 normal Not Available [address], [address], 07/01/2023 15:29:34 06/25/20 23 07/01/2023 CBC (INCL UDES DIFF/ PLT) MCHC 31.6 g/dL 32.0-3 6.0 low Not Available [address], [address], 07/01/2023 15:29:34 06/25/20 23 07/01/2023 CBC (INCL UDES DIFF/ PLT) RDW 13.0 % 11.0-1 5.0 normal Not Available [address], [address], 07/01/2023 15:29:34 06/25/20 23 07/01/2023 CBC (INCL UDES DIFF/ PLT) platelet count 300 thous and/u L 140-40 0 normal Not Available [address], [address], 07/01/2023 15:29:34 06/25/20 23 07/01/2023 CBC (INCL UDES DIFF/ PLT) MPV 11.2 fL 7.5-12 .5 normal Not Available [address], [address], 07/01/2023 15:29:34 06/25/20 23 07/01/2023 CBC (INCL UDES DIFF/ PLT) absolute neutrophils 3615 cells /uL 1500-7 800 normal Not Available [address], [address], 07/01/2023 15:29:34 06/25/20 23 07/01/2023 CBC (INCL UDES DIFF/ PLT) absolute lymphocytes 2015 cells /uL 850-39 00 normal Not Available [facility] [address], [address], 07/01/2023 15:29:34 06/25/20 23 07/01/2023 CBC (INCL UDES DIFF/ PLT) absolute monocytes 428 cells /uL 200-95 0 normal Not Available [facility] [address], [address], 07/01/2023 15:29:34 06/25/20 23 07/01/2023 CBC (INCL UDES DIFF/ PLT) absolute eosinophils 112 cells /uL 15-500 normal Not Available [facility] [address], [address], 07/01/2023 15:29:34 06/25/20 23 07/01/2023 CBC (INCL UDES DIFF/ PLT) absolute basophils 31 cells /uL 0-200 normal Not Available [facility] [address], [address], 07/01/2023 15:29:34 06/25/20 23 07/01/2023 CBC (INCL UDES DIFF/ PLT) neutrophils 58.3 % normal Not Available [address], [address], 07/01/2023 15:29:34 06/25/20 23 07/01/2023 CBC (INCL UDES DIFF/ PLT) lymphocytes 32.5 % normal Not Available [facility] [address], [address], 07/01/2023 15:29:34 06/25/20 23 07/01/2023 CBC (INCL UDES DIFF/ PLT) monocytes 6.9 % normal Not Available [address], [address], 07/01/2023 15:29:34 06/25/20 23 07/01/2023 CBC (INCL UDES DIFF/ PLT) eosinophils 1.8 % normal Not Available [facility] [address] [place], [address], 07/01/2023 15:29:34 06/25/20 23 07/01/2023 CBC (INCL UDES DIFF/ PLT) basophils 0.5 % normal Not Available [facility] [address] [place], [address], 07/01/2023 15:29:34 06/25/20 23 07/01/2023 KAILASH MULTI PLEX W/REF DONITA 11 AB CASCA DE anachoice(R) screen NEGATI VE negati ve normal A negat patsy KAILASH Multi plex, with Refle x to 11 Antib shivani [place] de indic ates the absen ce of detec table antib odies to compo nent cammie rachell consi sting of doubl e stran ded DNA (dsDN A), chrom atin, ribon ucleo prote in (RESIDENT CARE COORDINATOR) , Meng /RESIDENT CARE COORDINATOR (Sm/R LICENSED NUCLEAR CONTROL ROOM OPERATOR), Meng (Sm), SS-A, SS-B, Della-1, centr omere B, Scl-7 0 and ribos omal P. A negat patsy resul t shoul d be inter prete d in the shandra xt of the clini josephine and labor atory findi ngs and does not rule out autoi mmune disea se laina cteri zed by other autoa ntibo dy speci ficit ies such as rheum atoid arthr itis, autoi mmune hepat itis, prima ry bilia ry cirrh osis, autoi mmune thyro iditi s, Angelika on's disea se, perni cious anemi a, autoi mmune neuro pathi es, vascu litis , harvey c disea se, and bullo us disea se. For addit ional infor david galvan e refer to http: //yomi keatingQue stDia gnost ics.c om/fa q/FAQ 177 (This link is being provi ded for infor tyra chamberlain/ educlawrence singletary purpo ses only. ) Not Available [employer] [address] [place], [address], 07/01/2023 15:29:35 06/25/20 23 07/01/2023 THYRO ID PEROX IDASE AND THYRO GLOBU JAMES ANTIB ODIES thyroglobuli n antibodies 1 IU/mL < or = 1 Not Available [address], [address], 07/01/2023 15:29:36 06/25/20 23 07/01/2023 THYRO ID PEROX IDASE AND THYRO GLOBU JAMES ANTIB ODIES thyroid peroxidase antibodies 2 IU/mL <9 Not Available [address], [address], 07/01/2023 15:29:36 06/25/20 23 07/01/2023 CORTI CHRISTIANO, A.M. cortisol, A.M. 15.5 mcg/d L normal Refer ence Range 8 a.m. (7-9 a.m.) Speci men: 4.0-2 2.0 Not Available [address], [address], 07/01/2023 15:29:36 06/25/20 23 07/01/2023 VITAM IN B12/F OLATE , SERUM PANEL vitamin B12 418 pg/mL 200-11 00 normal Not Available [address], [address], 07/01/2023 15:29:37 06/25/20 23 07/01/2023 VITAM IN B12/F OLATE , SERUM PANEL folate, serum 21.1 NG/mL normal Refer ence Range Low: <3.4 Borde rline : 3.4-5 .4 Monika l: >5.4 Not Available [address], [address], 07/01/2023 15:29:37 06/25/20 23 07/01/2023 T3, FREE T3, free 4.1 pg/mL 2.3-4. 2 normal Not Available [facility] [address] [place], [address], 07/01/2023 15:29:37 06/25/2007/01/2023 TSH+F REE T4 TSH 0.01 mIU/L low Refer ence Range > or = 20 Years 0.40- 4.50 Pregn caden Range s First trime ster 0.26- 2.66 Secon d trime ster 0.55- 2.73 Third trime ster 0.43- 2.91 Not Available [facility] [address] [place], [address], 07/01/2023 15:29:38 06/25/2007/01/2023 TSH+F REE T4 T4, free 1.0 NG/dL 0.8-1. 8 normal Not Available [place] [address] [place], [address], 07/01/2023 15:29:38 Result Notes None recorded. Problems Name Problem SNOMED Code Status Onset Date Resolution Date Notes Provider Name and Address Organization Details Recorded Time Acute bronchitis 45169685 Active Not Available [facility] 3 07:31:37 Fluid level behind tympanic membrane Active Not Available [facility] 3 07:31:37 Eruption 894817391 Active Not Available [facility] 3 07:31:37 Vitamin D deficiency 33122576 Active Not Available [facility] 3 07:31:37 Fever 534341013 Active Not Available [facility] 3 07:31:37 Anxiety 23453964 Active Not Available [facility] 3 07:31:38 Cough 86257643 Active Not Available [facility] 3 07:31:38 Upper respiratory infection 07381729 Active Not Available [facility] 3 07:31:38 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 Not Available [facility] 3 07:31:38 Posterior rhinorrhea 88802847 Active Not Available [facility] 3 07:31:38 Fatigue 37856913 Active Not Available [facility] 3 07:31:38 Thyroid function tests abnormal 837845668 Active 2022 Edelmira Blackmon MD [address], [place] [address], [place], [address] , [facility] [employer] [facility] 3 11:28:38 Ankur thyroiditis 36023104 Active 2022 Edelmira Blackmon MD [address] [place] [address], [place], [address] , [employer] [facility] 3 14:32:36 Vitamin B12 deficiency (non anemic) 39683992 Active 2022 Edelmira Blackmon MD [address] [place] [address], [place], [address] , [employer] 3 14:33:12 Problem Notes None recorded. Medical Equipment None Reported. Allergies Allergen ID Allergen Name Allergen Category Reaction Reaction Severity Criticality Documentation Date Start Date Code Code System Note Provider Name and Address Organization Details Recorded Time 81554 Product containin g penicilli n (product) medicatio n rash Not available Not available 01/05/2023 20127 8001 SNOMED Not Available [facility] 3 07:36:15 Medications Name Sig Start Date Stop Date Status Note LastModified by Organization Details LastModified Time azithromyci n 250 mg tablet TK 2 TS PO AT ONCE TODAY THEN TK 1 T PO ONCE D FOR 4 DAYS active Not Available Not Available No t Available valacyclovi r 1 gram tablet TAKE 2 TABLETS BY MOUTH TWICE DAILY active Not Available Not Available No t Available Zantac 150 mg tablet Take 1 tablet twice a day by oral route as directed for 10 days. 08/01 completed Not Available Not Available Not Available fluoxetine 10 mg capsule TAKE 1 CAPSULE BY MOUTH DAILY active Not Available Not Available No t Available methylpredn isolone 4 mg tablets in a dose pack TK UTD active Not Available Not Available Not Available Vitamin D2 1,250 mcg (50,000 unit) capsule TAKE 1 CAPSULE BY MOUTH 1 TIME WEEKLY IN THE MORNING active Not Available Not Available No t Available fluticasone propionate 50 mcg/actuati on nasal spray,suspe nsion Inhale 2 sprays every day by intranasa l route in the morning for 30 days. active Not Available Not Available No t Available Benadryl 25 mg capsule Take 1 capsule every 4 hours by oral route as needed for 10 days. 08/01 completed Not Available Not Available Not Available Mucinex DM 30 mg-600 mg tablet,exte nded release 12 hr Take 1 tablet every 12 hours by oral route as directed for 15 days. active Not Available Not Available No t Available Lo Loestrin Fe 1 mg-10 mcg (24)/10 mcg (2) tablet TAKE 1 TABLET BY MOUTH DAILY 04/11 completed Not Available Not Available Not Available Jublia 10 % topical solution with applicator APPLY TO THE AFFECTED AREA EVERY NIGHT AT BEDTIME active Not Available Not Available No t Available BinaxNOW COVID-19 Ag Self Test kit TEST DIRECTED TODAY active Not Available Not Available No t Available Paxlovid 300 mg (150 mg x 2)-100 mg tablets in a dose pack TAKE DIRECTED ON PACKAGE FOR 5 DAYS 04/11 completed Not Available Not Available Not Available Vitals Date Recorded Body weight Body temperature Body mass index (BMI) Body height Respiratory rate Heart rate Systolic blood pressure Diastolic blood pressure Provider Name and Address Organization Details Last Updated DateTime 3 38007.2 4 g 97.5 [degF] 31.4 kg/m2 165.1 cm 18 /min 64 /min 118 mm[Hg] 78 mm[Hg] GLADYS Rice [facility] [employer] 3 11:09:42 Date Recorded Body height Body mass index (BMI) Body weight Body temperature Heart rate Systolic blood pressure Diastolic blood pressure Provider Name and Address Organization Details Last Updated DateTime 3 165.1 cm 30 kg/m2 51636.6 3 g 98.1 [degF] 80 /min 104 mm[Hg] 74 mm[Hg] Jocelin Camargo CMA [facility] [employer] [facility] 3 14:01:51 Social History None recorded. Functional Status None recorded. Mental Status None recorded. Family History Relationship Description Onset Age of this Age Resolved Age Notes LastModified by Organization Details LastModified Time Father Hypertensive disorder clouvier Not available 2022 11:10:48 Mother Hypertensive disorder clouvier Not available 2022 11:10:48 Mother Goiter akovach Not available 13:48:51 Notes:none Medical History No medical history recorded. Gynecological HistoryNo gynecological history recorded. Obstetrics History GPAL:G 0 P 0 0 0 0 Immunizations Vaccine Type Date Status Note Provider Nam e and Address Organization Details Recorded Time Influenza, split virus, trivalent, preservative 4 completed Not Available [facility] 01/05/2023 07:36:08 Past Encounters Encounter ID Performer Location Encounter Start Date Encounter Closed Date Diagnosis/Indication Diagnosis SNOMED-CT Code Diagnosis ICD10 Code Diagnosis Note [id number] Edelmira Blackmon MD [facility] [address] [place] [address] 04/11/2023 10:52:27 04/11/2023 11:36:30 Thyroid function tests abnormal 714559812 R94.6 TSH suppressed however we do not have any other labs to assess if true underlying thyroid condition or thyroiditi s changes. Will send for TPO antibodies and serum iodine to screen for early hypothyroi dism or autoimmune thyroid disease as patient does exhibit weight gain and fatigue. Fatigue 02429924 R53.83 Will send for thyroid antibodies to screen for autoimmune thyroid disease in addition to CBC, CMP, ferritin, KAILASH, acth/corti christiano and B12/folate to screen for other potential secondary causes of fatigue. Spent up to 30 minutes preparing to see the patient (eg, review of tests), obtaining and/or reviewing separately obtained history, performing a medically appropriat e examinatio n and evaluation , counseling and educating the patient, ordering medication s, tests, along with documentin g clinical informatio n in the electronic health record, independen tly interpreti ng results and communicat ing results to the patient. RTC in 3 months. Patient was provided a handwritte n lab order which contains our fax number. If she chooses to go outside of the [facility] system to obtain labwork she was advised to provide our fax number and my informatio n to the lab she will be obtaining labwork from in order to have her labs properly forwarded over for me to review so there is no loss of follow up due to use of outside network. She was also advised to contact our clinic informing us that she has completed her labwork so we are aware we will need to reach out to the appropriat e laboratory to request her results be forwarded to us so I might have the ability to review and make further medical decision making in her case. She voiced understand ing. Thank you for this consultati on. 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 Her FT4/FT3 levels are in ideal range- she does not show need or indication to start on thyroid replacemen t at this time. Recommende d a thyroid supplement similiar to actalin by Dr. Roe Hightower that contains, iodine, magnesium, manganese, carnitine and other elements to help maintain endogenous thyroid function and help to reduce swelling to take in meantime to help reduce time frame to burn out and to help with fatigue, hair thinning etc. Vitamin B1 2 deficiency (non anemic) [id number] E53.8 Continue on methylated liquid B12 supplement ation for best absorption . Spent up to 15 minutes preparing to see the patient (eg, review of tests), obtaining and/or reviewing separately obtained history, performing a medically appropriat e examinatio n and evaluation , counseling and educating the patient, ordering medication s, tests, along with documentin g clinical informatio n in the electronic health record, independen tly interpreti ng results and communicat ing results to the patient. Patient can be followed by PCP - she/he is aware of my resignatio n and last day of August 19. If needed his/her PCP can refer patient to another endocrinol ogist in the area. All questions /concerns answered and refills necessary at visit today. Health Concerns Section Related Observation LastModified by Organization Detai ls LastModified Time None Recorded Concern Status LastModified by Organization Details LastModified Time None Recorded Advance Directives Directive None Recorded Payers Encounter Date Sequence Insurance Name Policy Number Policy Rojo Covered Member ID Rojo Member ID Guarantor Name 04/11/2023 1 [employer] - OPEN ACCESS [id number] Mau Chang [id number] QUINTIN Chang 06/30/2023 1 [employer] - OPEN ACCESS [id number] Mau Chang [id number] OI Mary Chang Notes Date Note Type Note Provider Name and Address Organization Details Recorded Time 04/11/2023 text/html 52 yo female com es in as referral by courtesy of Dr. Sterling for evaluation of low TSH She has struggled with weight gain and fatigue. She has had menopausal changes and thinks she is in menopause at this point. She has gained 20 pounds over the last 2 years. Her LMP is just a year now. She has had increased sleepiness but she is taking prozac for the first time and now at 4 months. She feels prozac has helped with the anxiety but still just very fatigue. She has never had anemia- cycles were heavy toward the end. labs from 12/30:TSH of 0.02 uIU/mlglucose 95 mg/dL Edelmira Blackmon MD [address], [address], [place], [address], Elias Borges Urzeda 04/11/2023 13:09:49 06/30/2023 text/html 52 yo female com es in for follow up in management of abnormal thyroid studies likely early hashimotos/thyroidit is and B12 def. At initial visit in April we sent patient for full workup. She has evidence of low B12 and low TPO antibodies in setting of positive KAILASH. She has continued fatigue. She has lost 8 pounds since her initial visit. labs from 04/22/23:TSH of 0.01 uIU/mlFT4 of 1.1 ng/dLFT3 of 4.5 pg/mLB12 382 pg/mLfolate normalTPO 3 IU/mlANA 1:40 positiveiodine 77 ng/mLacth 22 pg/mlglucose 92 mg/dLCr normalLFT normal Edelmira Blackmon MD [address], [place], [address], Elias Borges Urzeda 06/30/2023 14:33:52 OBGyn Episode No OBEpisode recorded.
--- OUTSIDE RECORDS SUMMARY | 2025-01-17 12:50 | XMS_ITS | Encounter Summary ---
Author Organization [facility] Address [address] [place] [address] Care Team Providers Care Marketing Information Manager Name Role Phone Audelia Sterling MD Primary Care Provider [phone] Encounter Details Date Type Department Care Team (Late st Contact Info) Description 01/15/2025 External Device Data [place] ABSTRACTION Provider, Abstract NO ADDRESS ON FILE Social History Tobacco Use Types Packs/Day Years Used Date Smoking Tobacco: Never Alcohol Use Standard Drinks/Week Comments Yes 0 (1 standard drink = 0.6 oz pur e alcohol) social Comments No Sex and Gender Information Value Date Recorded Sex Assigned at Not on file Legal Sex Female 12:04 PM DISTRIBUTOR OPERATOR Gender Identity Not on file Sexual Orientation Not on file documented as of this encounter Plan of Treatment Upcoming Encounters Date Type Department Care Team (Late st Contact Info) Description 12/12/2025 11:00 AM DISTRIBUTOR OPERATOR Office Visit [facility] Primary Care [address] [place] [address] [place] [address] [place] [address] documented as of this encounter Visit Diagnoses Not on filedocumented in this encounter Care Teams Marketing Information Manager Relationship Specialty [place] [address] [place] [address] PCP - General Family Practice 12/12/24 documented as of this encounter
--- OUTSIDE RECORDS SUMMARY | 2025-01-17 12:50 | XMS_ITS | Referral Summary ---
Author Organization [facility] Address [address] [place] [address] Care Team Providers Care Can Line Examiner Name Role Phone Audelia Sterling MD Primary Care Provider [phone] Encounters Date Type Department Care Team Description 12/17/2024 Telephone [facility] Primary Care at [address] [address] Audelia Sterling MD from Last 3 Months Social History Tobacco Use Types Packs/Day Years Used Date Smoking Tobacco: Never Assessed Personal Safety Answer Date Recorded Getting School Help Needed Not on file 10/28 Comments Unknown Sex and Gender Information Value Date Recorded Sex Assigned at Not on file Legal Sex Female 9:03 AM ANALYTICAL CHEMIST Gender Identity Not on file Sexual Orientation Not on file Plan of Treatment Not on file Insurance [facility] [id number] [place] [employer] [facility] [id number] Care Teams Can Line Examiner Relationship Specialty Start Date End Date Audelia Sterling MD PCP - General Family Medicine 03/13/24
--- OUTSIDE RECORDS SUMMARY | 2025-01-17 12:50 | XMS_ITS | Encounter Summary ---
Author Organization [facility] Address [address] [place] [address] Care Team Providers Care Regional Director Of Admissions Name Role Phone Audelia Sterling MD Primary Care Provider Encounter Details Date Type Department Care Team (Latest Contact Info) Description 12/19/2024 Results Follow-Up [facility] Primary Care [address] [place] [address] [place] [address] [place] [address] CBC WITH DIFFERENTIAL, COMPREHENSIVE METABOLIC PANEL, HEMOGLOBIN A1C, Additional followed-up results: 2 Social History Tobacco Use Types Packs/Day Years Used Date Smoking Tobacco: Never Alcohol Use Standard Drinks/Week Comments Yes 0 (1 standard drink = 0.6 oz pur e alcohol) social Comments No Sex and Gender Information Value Date Recorded Sex Assigned at Not on file Legal Sex Female 12:04 PM FACILITATOR Gender Identity Not on file Sexual Orientation Not on file documented as of this encounter Plan of Treatment Upcoming Encounters Date Type Department Care Team (Late st Contact Info) Description 12/12/2025 11:00 AM FACILITATOR Office Visit [facility] Primary Care [address] [place] [address] [place] [address] [place] [address] documented as of this encounter Visit Diagnoses Not on filedocumented in this encounter Care Teams Regional Director Of Admissions Relationship Specialty [place] [address] [place] [address] PCP - General Family Practice 12/12/24 documented as of this encounter
--- OUTSIDE RECORDS SUMMARY | 2025-01-17 12:50 | XMS_ITS | Encounter Summary ---
Author Organization [facility] Address [address] [place] [address] Care Team Providers Care Hostel Manager Name Role Phone Audelia Sterling MD Primary Care Provider [phone] Encounter Details Date Type Department Care Team [...] on file Legal Sex Female 12:04 PM ASSISTANT DISTRIBUTION MANAGER Gender Identity Not on file Sexual Orientation Not on file documented as of this encounter Plan of Treatment Upcoming Encounters Date Type Department Care Team (Late st Contact Info) Description 12/12/2025 11:00 AM ASSISTANT DISTRIBUTION MANAGER Office Visit [facility] Primary Care [address] [place] [address] [place] [address] [place] [address] documented as of this encounter Visit Diagnoses Not on filedocumented in this encounter Care Teams Hostel Manager Relationship Specialty [place] [address] [place] [address] PCP - General Family Practice 12/12/24 documented as of this encounter
--- OUTSIDE RECORDS SUMMARY | 2025-01-17 12:50 | XMS_ITS | Clinical Summary ---
Author Organization [facility] Address [address] [place] [address] Care Team Providers Care Seam Feller Name Role Phone Audelia Sterling MD Primary Care Provider [phone] Encounters Date Type Department Care Team Description 12/17/2024 Telephone [facility] Primary Care at [facility] [address] [address] Audelia Sterling MD from Last 3 Months Social History Tobacco Use Types Packs/Day Years Used Date Smoking Tobacco: Never Assessed Personal Safety Answer Date Recorded Getting School Help Needed Not on file 10/28 Comments Unknown Sex and Gender Information Value Date Recorded Sex Assigned at Not on file Legal Sex Female 9:03 AM BEE RANCHER Gender Identity Not on file Sexual Orientation Not on file Plan of Treatment Health Maintenance Due Date Last Done Comments Cervical Cancer Screening 1969 Colon Cancer Screening-Colonoscopy 1969 Depression Screening 1969 Hepatitis C Screening 1969 Hepatitis B Screening 1987 Regular Well Visit/Exam 18-64 1987 Breast Cancer Screening-Mammogram 01/04/2020 01/04/2019 Covid-19 Vaccine ( season) 2024 11/13/2023, 07/14/2022, 02/14/2022, Additional history exists Influenza Vaccine (#1) 2024 , 08/30/2021, 08/15/2019, Additional history exists DTaP/Tdap/Td Vaccine (2 - Td or Tdap) 10/15/2029 10/15/2019 Zoster Vaccine Completed 10/05/2021, 05/08/2021 Pneumococcal vaccine <65 Aged Out No longer eligible based on patient's age to complete this topic Insurance [facility] [id number] [employer] [facility] [id number] Care Teams Seam Feller Relationship Specialty Start Date End Date Audelia Sterling MD PCP - General Family Medicine 03/13/24
--- OUTSIDE RECORDS SUMMARY | 2025-01-17 12:50 | XMS_ITS | Clinical Summary ---
Author Organization [facility] Address [address] [place] [address] Phone Care Team Providers Care Bilingual Research Interviewer Name Role Phone Unavailable Primary Care Provider Unavailabl e Allergies Active Allergy Reactions Criticality Noted Date Comments Penicillins Unknown 09/06/2018 Medications Efinaconazole (Jublia) 10 % Solution APPLY TOPICALLY TO THE AFFECTED AREA AT BEDTIME 4 mL 1 3 Active docosanol (Abreva) 10 % Cream Apply 5 times daily. Application Site: lip (Description and Location) 3 Active valACYclovir (Valtrex) 1 GM Tablet Take 2 Tablets by mouth 2 times daily. 20 Tablet 3 Active FLUoxetine (PROzac) 10 MG Capsule Take 1 Capsule by mouth daily. 90 Capsule 1 3 Active Active Problems Problem Noted Date Diagnosed Date Anxiety 04/11/2023 Cold sore 09/06/2018 BMI 30.0-30.9,adult 09/06/2018 Immunizations Immunization Administration Dates Next Due Covid-19, Mrna, Lnp-s, Pf, 3 0 Mcg/0.3 Ml Dose (Intellitactics) 08/30/2021,01/23/2021,01/03/2021 Influenza Vaccine, MDCK,quad rivalent, pres free 10/21/2022,08/15/2019 Influenza Vaccine, Quadrivalent, PF 09/06/2023(D eferred: Other),09/06/2018 Influenza, Seasonal, Injecta ble, Undefined 08/30/2021,08/09/2014 TDAP Vaccine 10/15/2019 Zoster Vaccine Recombinant 10/05/2021,05/08/2021 Family History Medical History Relation Name Comments Hypertension Father Hypertension Mother Other-comment Mother ama sims Relation Name Status Comments Father Alive Mother Alive Social History Tobacco Use Types Packs/Day Years Used Date Smoking Tobacco: Never Smokeless Tobacco: Never Tobacco Cessation:Counseling Given: Yes Alcohol Use Standard Drinks/Week Comments No 0 (1 standard drink = 0.6 oz pur e alcohol) PHQ-2 Answer Date Recorded Total Score - Questions 1-9 0 07/2023 Education Answer Date Recorded What is the highest level of school you have completed or the highest degree you have received? Master's degree (e.g., MA, MS, Nick, MEd, WRAPPER OFF, IVANA) 11/12/2022 Comments No Sex and Gender Information Value Date Recorded Sex Assigned at Not on file Legal Sex Female 9:43 AM CDT Gender Identity Not on file Sexual Orientation Not on file Last Filed Vital Signs Vital Sign Reading Time Taken Comments Blood Pressure 118/68 09/06/2023 12:12 PM CDT Pulse 59 09/06/2023 12:12 PM CDT Temperature 36.3 C (97.4 F) 09/06/2023 12:12 PM CDT Respiratory Rate 14 09/06/2023 12:12 PM CDT Oxygen Saturation 97% 09/06/2023 12:12 PM CDT Inhaled Oxygen Concentration - - Weight 85.3 kg (188 lb) 09/06/2023 12:12 PM CDT Height 165.1 cm (5' 5 ) 09/06/2023 12:12 PM CDT Body Mass Index 31.28 09/06/2023 12:12 PM CDT Plan of Treatment Health Maintenance Due Date Last Done Comments Hepatitis C Virus (HCV) Screening 1969 Hepatitis B Immunization (1 of 3 - 19+ 3-dose series) 1988 HPV/Cotest 1999 Colonoscopy 2014 Immunochemical Fecal Occult Blood 2019 Pneumococcal Immunization (50+ years) (1 of 1 - PCV) 2019 Mammogram 05/06/2024 05/06/2023, 08/07, 01/04/2019 Influenza Immunization (#1) 07/08/202410/07, 08/15/2019, 09/06/2018 SARS-COV-2 Immunization ( season) 2024 11/13/2023, 07/14/2022, 02/14/2022, Additional history exists Cologuard 12/29/2025 12/29/2022, 10/24/2019 Colorectal Cancer Screening 12/29/2025 Cervical Cancer Screening (CCS) 02/25/2026 Pap Smear 02/25/2026 02/25/2023, 03/06/2019 Td Immunization Every 10 Years (Adults With 1 Tdap) 10/15/2029 10/15/2019 Respiratory Syncytial Virus (RSV) Immunization (Adult) (1 - 1-dose 75+ series) 2044 Zoster Immunization Completed 10/05/2021, Meningococcal Immunization (ACWY) Aged Out No longer eligible based on patient's age to complete this topic Rotavirus Immunization Aged Out No lo nger eligible based on patient's age to complete this topic Procedures Procedure Name Priority Date/Time Associated Diagnosis Comments MAMMOGRAM BILATERAL GENERIC 05/06/2023 12:00 AM CDT COLOGUARD Routine 12/29/2022 9:30 AM WARP TYING MACHINE KNOTTER Screen for colon cancer PATHOLOGY CYTOLOGY WATER SOFTENER SERVICER Routine 03/06/2019 from Last 3 Months or Most Recently Relevant to Health Maintenance Results * MAMMOGRAM BILATERAL MISCELLANEOUS (05/06/2023 12:00 AM CDT) 05/06/2023 us Provider Scan IMG MAMMO ORDERABLES Final Resul t SCAN * COLOGUARD (12/29/2022 9:30 AM WARP TYING MACHINE KNOTTER) Cologuard Negative Negative [facility] Comment: NEGATIVE TEST RESULT. A negative Cologuard result indicates a low likelihood that a colorectal cancer (CRC) or advanced adenoma (adenomatous polyps with more advanced pre-malignant features) is present. The chance that a person with a negative Cologuard test has a colorectal cancer is less than 1 in 1500 (negative predictive value >99.9%) or has an advanced adenoma is less than 5.3% (negative predictive value 94.7%). These data are based on a prospective cross-sectional study of 10,000 individuals at average risk for colorectal cancer who were screened with both Cologuard and colonoscopy. (Carolina Hernandez, N Engl J Med 2014;370(14):8442-3847) The normal value (reference range) for this assay is negative. COLOGUARD RE-SCREENING RECOMMENDATION: Periodic colorectal cancer screening is an important part of preventive healthcare for asymptomatic individuals at average risk for colorectal cancer. Following a negative Cologuard result, the [place] [employer] Society and U.S. Multi-Society Task Force screening guidelines recommend a Cologuard re-screening interval of 3 years. References: [place] [employer] Guideline for Colorectal Cancer Screening: https://www.cancer.org/cancer/wojzk-jidagw-zpnlpf/lswxcanoy-mmgtbyxjl-bfdqdif/ acs-recommendations.html.; Suhail DK, Elizabeth YOST, Jackie AnnaK, Colorectal Cancer Screening: Recommendations for Physicians and Patients from the U.S. Multi-Society Task Force on Colorectal Cancer Screening , Am J Gastroenterology 2017; 112:9134-2933. TEST DESCRIPTION: Composite algorithmic analysis of stool DNA-biomarkers with hemoglobin immunoassay. Quantitative values of individual biomarkers are not reportable and are not associated with individual biomarker result reference ranges. Cologuard is intended for colorectal cancer screening of adults of either sex, 45 years or older, who are at average-risk for colorectal cancer (CRC). Cologuard has been approved for use by the U.S. FDA. The performance of Cologuard was established in a cross sectional study of average-risk adults aged 50-84. Cologuard performance in patients ages 45 to 49 years was estimated by sub-group analysis of near-age groups. Colonoscopies performed for a positive result may find as the most clinically significant lesion: colorectal cancer [4.0%], advanced adenoma (including sessile serrated polyps greater than or equal to 1cm diameter) [20%] or non- advanced adenoma [31%]; or no colorectal neoplasia [45%]. These estimates are derived from a prospective cross-sectional screening study of 10,000 individuals at average risk for colorectal cancer who were screened with both Cologuard and colonoscopy. (Imperiale T. et al, N Engl J Med 2014;370(14):7794-6651.) Cologuard may produce a false negative or false positive result (no colorectal cancer or precancerous polyp present at colonoscopy follow up). A negative Cologuard test result does not guarantee the absence of CRC or advanced adenoma (pre-cancer). The current Cologuard screening interval is every 3 years. ([place] [employer] Society and U.S. Multi-Society Task Force). Cologuard performance data in a 10,000 patient pivotal study using colonoscopy as the reference method can be accessed at the following location: www.MapHazardly.com/results. Additional description of the Cologuard test process, warnings and precautions can be found at www.cologuard.com. Stool 12/29/2022 9:30 AM WARP TYING MACHINE KNOTTER 12/30/2022 12:00 PM WARP TYING MACHINE KNOTTER Audelia Sterling MD BODY FLUIDS & STOOLS ORDERA BLES Final Result Performing Organization Address City/State/[facility] Co de Phone Number [employer] [facility] [address] [place] [address], [employer] [address] [place] [address] * PATHOLOGY CYTOLOGY WATER SOFTENER SERVICER (03/06/2019) Specimen of unknown material (specimen) Sue Luke MD PATHOLOGY/CYTOLOGY ORDERA BLES Final Result from Last 3 Months or Most Recently Relevant to Health Maintenance Insurance [facility] OA
--- OUTSIDE RECORDS SUMMARY | 2025-01-17 12:50 | XMS_ITS | Clinical Summary ---
Author Organization [facility] [address] [place] [address] Address [address] [place] [address] Care Team Providers Care Top Screw Name Role Phone Audelia Sterling MD Primary Care Provider Allergies Active Allergy Reactions Criticality Noted Date Comments Penicillins Rash,Unknown Medium 09/06/2018 Medications methIMAzole (TAPAZOLE) 5 mg tablet Take 5 mg by mouth daily. 11/22/2024 Active Active Problems Problem Noted Date Diagnosed Date Hyperthyroidism 12/13/2024 BMI 32.0-32.9,adult 12/13/2024 Encounters Date Type Department Care Team Description 01/15/2025 External Device Data [facility] ABSTRACTION Provider, Abstract 01/15/2025 External Device Data [facility] ABSTRACTION Provider, Abstract 01/12/2025 External Device Data [facility] ABSTRACTION Provider, Abstract 01/11/2025 External Device Data [facility] ABSTRACTION Provider, Abstract 01/08/2025 External Device Data [facility] ABSTRACTION Provider, Abstract 12/25/2024 External Device Data [facility] ABSTRACTION Provider, Abstract 12/19/2024 Results Follow-Up [facility] Primary [facility] [address] [place] [phone] Audelia Sterling MD CBC WITH DIFFERENTIAL, COMPREHENSIVE METABOLIC PANEL, HEMOGLOBIN A1C, Additional followed-up results: 2 12/12/2024 2:00 PM WILLOW MACHINE OPERATOR Office Visit [facility] Primary [facility] [address] [place] [phone] Audelia Sterling MD Annual visit for general adult medical examination with abnormal findings (Primary Dx); Hyperthyroidism; BMI 32.0-32.9,adult; Caregiver stress 11/29/2024 External Device Data [facility] ABSTRACTION Provider, Abstract 11/28/2024 External Device Data [facility] ABSTRACTION Provider, Abstract 11/27/2024 External Device Data [facility] ABSTRACTION Provider, Abstract 11/21/2024 External Device Data ST[facility] ABSTRACTION Provider, Abstract 11/13/2024 External Device Data STL ABSTRACTION Provider, Abstract from Last 3 Months Family History Medical History Relation Name Comments COPD Father Hypertension Father Neuropathy Father Heart Disease Maternal Grandfather Osteoporosis Maternal Grandmother Hypertension Mother Hyperthyroidism Mother Dementia Paternal Grandmother Osteoporosis Sister Genetic Disorders Son Relation Name Status Comments Father Maternal Grandfather Maternal Grandmother Mother Paternal Grandmother Sister Son Social History Tobacco Use Types Packs/Day Years Used Date Smoking Tobacco: Never Tobacco Cessation:Counseling Given: Not Answered Alcohol Use Standard Drinks/Week Comments Yes 0 (1 standard drink = 0.6 oz pur e alcohol) social Comments No Sex and Gender Information Value Date Recorded Sex Assigned at Not on file Legal Sex Female 12:04 PM WILLOW MACHINE OPERATOR Gender Identity Not on file Sexual Orientation Not on file Last Filed Vital Signs Vital Sign Reading Time Taken Comments Blood Pressure 118/78 12/12/2024 2:05 PM WILLOW MACHINE OPERATOR Pulse 69 12/12/2024 2:05 PM WILLOW MACHINE OPERATOR Temperature 36.4 C (97.5 F) 12/12/2024 2:05 PM WILLOW MACHINE OPERATOR Respiratory Rate - - Oxygen Saturation 97% 12/12/2024 2:05 PM WILLOW MACHINE OPERATOR Inhaled Oxygen Concentration - - Weight 89.4 kg (197 lb) 12/12/2024 2:05 PM WILLOW MACHINE OPERATOR Height 165.1 cm (5' 5 ) 12/12/2024 2:05 PM WILLOW MACHINE OPERATOR Body Mass Index 32.78 12/12/2024 2:05 PM WILLOW MACHINE OPERATOR Plan of Treatment Upcoming Encounters Date Type Department Care Team (Late st Contact Info) Description 12/12/2025 11:00 AM WILLOW MACHINE OPERATOR Office Visit [facility] Primary Care [address] [place] [address] [place] [address] [place] [address] Health Maintenance Due Date Last Done Comments HEPATITIS B VACCINES (1 of 3 - 19+ 3-dose series) 1988 COLORECTAL SCREENING 2014 FIT/FOBT Q 1 year 2014 Flex Sig/CT Colonography Q 5 years 2014 BREAST CANCER SCREENING 01/04/2020 01/04/2019 CERVICAL CANCER SCREENING 03/06/2022 03/06/2019 INFLUENZA VACCINE (#1) 2024 2, 08/30/2021, 08/15/2019, Additional history exists COVID-19 Vaccine (2023-2 5 season) 2024 08/30/2021, 01/23/2021, 01/03/2021 Colorectal Cancer Screening 12/29/2025 FIT-DNA Q 3 years 12/29/2025 12/29/2022 Pre-Diabetes and Diabetes Screening 12/18/2027 12/18/2024 DTAP/TDAP/TD VACCINES (2 - T d or Tdap) 10/15/2029 10/15/2019 ZOSTER VACCINE Completed 10/05/2021, 05/08/2021 Preventative Visit- Commercial Completed 12/12/2024 Procedures Procedure Name Priority Date/Time Associated Diagnosis Comments VITAMIN D 25 HYDROXY Routine 12/18/2024 8:23 AM WILLOW MACHINE OPERATOR Annual visit for general adult medical examination with abnormal findings LIPID PANEL Routine 12/18/2024 8:23 AM WILLOW MACHINE OPERATOR Annual visit for general adult medical examination with abnormal findings HEMOGLOBIN A1C Routine 12/18/2024 8:23 AM WILLOW MACHINE OPERATOR Annual visit for general adult medical examination with abnormal findings COMPREHENSIVE METABOLIC PANEL Routine 12/18/2024 8:23 AM WILLOW MACHINE OPERATOR Annual visit for general adult medical examination with abnormal findings CBC WITH DIFFERENTIAL Routine 12/18/2024 8:23 AM WILLOW MACHINE OPERATOR Annual visit for general adult medical examination with abnormal findings from Last 3 Months Results * CBC WITH DIFFERENTIAL (12/18/2024 8:23 AM WILLOW MACHINE OPERATOR) WBC 7.5 3.8 - 10.8 Thousand/u L [facility] RBC 4.52 3.80 - 5.10 Million/uL [facility] HEMOGLOBIN 12.4 11.7 - 15.5 g/dL [facility] HEMATOCRIT 38.2 35.0 - 45.0 % [facility] MCV 84.5 80.0 - 100.0 fL [facility] MCH 27.4 27.0 - 33.0 pg [facility] MCHC 32.5 32.0 - 36.0 g/dL [facility] Comment: For adults, a slight decrease in the calculated MCHC value (in the range of 30 to 32 g/dL) is most likely not clinically significant; however, it should be interpreted with caution in correlation with other red cell parameters and the patient's clinical condition. RDW 12.9 11.0 - 15.0 % [facility] PLATELETS 333 140 - 400 Thousand/u L [facility] MPV 10.6 7.5 - 12.5 fL [facility] NEUTROPHIL ABSOLUTE 4,545 1,500 - 7,800 cells/uL [facility] LYMPHOCYTE ABSOLUTE 2,340 850 - 3,900 cells/uL [facility] MONOCYTE ABSOLUTE 488 200 - 950 cells/uL [facility] EOSINOPHIL ABSOLUTE 90 15 - 500 cells/uL [facility] BASOPHILS ABSOLUTE 38 0 - 200 cells/uL [facility] NEUTROPHIL 60.6 % [facility] LYMPHOCYTES 31.2 % [facility] MONOCYTE 6.5 % [facility] EOSINOPHILS 1.2 % [facility] BASOPHILS 0.5 % [facility] Comment: FASTING:YES FASTING: YES Test Performed at: [facility] [address] [address] [phone] Brando Garner Blood 12/18/2024 8:23 AM WILLOW MACHINE OPERATOR 12/18/2024 8:23 AM WILLOW MACHINE OPERATOR us Audelia Sterling MD HEMATOLOGY ORDERABLES Final Result [facility] [phone] [facility] [place] [address] [address] [phone] * (ABNORMAL) VITAMIN D 25 HYDROXY (12/18/2024 8:23 AM WILLOW MACHINE OPERATOR) VITAMIN D, 25 OH, TOTAL 29(L) 30 - 100 ng/mL [facility] Comment: Vitamin D Status 25-OH Vitamin D: Deficiency: <20 ng/mL Insufficiency: 20 - 29 ng/mL Optimal: > or = 30 ng/mL For 25-OH Vitamin D testing on patients on D2-supplementation and patients for whom quantitation of D2 and D3 fractions is required, the [facility](TM) 25-OH VIT D, (D2,D3), LC/MS/MS is recommended: order code 94440 (patients >2yrs). See Note 1 Note 1 For additional information, please refer to http://education.OUYA/faq/RFC984 (This link is being provided for informational/ educational purposes only.) FASTING:YES FASTING: YES Test Performed at: [facility] [address] [place] [address] Brando Kenyon MD Blood 12/18/2024 8:23 AM WILLOW MACHINE OPERATOR 12/18/2024 8:23 AM WILLOW MACHINE OPERATOR Audelia Sterling MD CHEMISTRY ORDERABLES Final Result [facility] [phone] [facility] [address] [place] [phone] * (ABNORMAL) HEMOGLOBIN A1C (12/18/2024 8:23 AM WILLOW MACHINE OPERATOR) Pathologist [facility] HEMOGLOBIN A1C 5.7(H) <5.7 % of total Hgb [facility] Comment: For someone without known diabetes, a hemoglobin A1c value between 5.7% and 6.4% is consistent with prediabetes and should be confirmed with a follow-up test. For someone with known diabetes, a value <7% indicates that their diabetes is well controlled. A1c targets should be individualized based on duration of diabetes, age, comorbid conditions, and other considerations. This assay result is consistent with an increased risk of diabetes. Currently, no consensus exists regarding use of hemoglobin A1c for diagnosis of diabetes for children. ESTIMATED AVERAGE GLUCOSE (MG/DL) 117 mg/dL [facility] ESTIMATED AVERAGE GLUCOSE (MMOL/L) 6.5 mmol/L [facility] Comment: FASTING:YES FASTING: YES Test Performed at: [facility] [place] [address] [address] [phone] [facility] Blood 12/18/2024 8:23 AM WILLOW MACHINE OPERATOR 12/18/2024 8:23 AM WILLOW MACHINE OPERATOR Audelia Sterling MD CHEMISTRY ORDERABLES Final Result [facility] [phone] [place] [address] [address] [address] * (ABNORMAL) LIPID PANEL (12/18/2024 8:23 AM WILLOW MACHINE OPERATOR) CHOLESTEROL 142 <200 mg/dL [facility] HDL 49(L) > OR = 50 mg/dL [facility] TRIGLYCERIDE 113 <150 mg/dL [facility] LDL CALCULATED 73 mg/dL (calc) [facility] Comment: Reference range: <100 Desirable range <100 mg/dL for primary prevention; <70 mg/dL for patients with CHD or diabetic patients with > or = 2 CHD risk factors. LDL-C is now calculated using the Jacqueline calculation, which is a validated novel method providing better accuracy than the Friedewald equation in the estimation of LDL-C. Cecil EARLY et al. JUNIOR. 2013;310(19): 3691-5939 (http://education.OUYA/faq/TTK910) CHOL/HDL RATIO 2.9 <5.0 (calc) [facility] NON-HDL CHOLESTEROL 93 <130 mg/dL (calc) [facility] Comment: For patients with diabetes plus 1 major ASCVD risk factor, treating to a non-HDL-C goal of <100 mg/dL (LDL-C of <70 mg/dL) is considered a therapeutic option. Test Performed at: [facility] [address] [address] [address] [facility] Blood 12/18/2024 8:23 AM WILLOW MACHINE OPERATOR 12/18/2024 8:23 AM WILLOW MACHINE OPERATOR us Audelia Sterling MD CHEMISTRY ORDERABLES Final Result [facility] [phone] [facility] [address] [address] [phone] * COMPREHENSIVE METABOLIC PANEL (12/18/2024 8:23 AM WILLOW MACHINE OPERATOR) GLUCOSE 93 65 - 99 mg/dL [facility] Comment: Fasting reference interval BUN 12 7 - 25 mg/dL [facility] [place] CREATININE 0.66 0.50 - 1.03 mg/dL [facility] [place] GFR 104 > OR = 60 mL/min/1. 73m2 [facility] BUN/CREAT RATIO SEE NOTE: 6 22 (calc) [facility] Comment: Not Reported: BUN and Creatinine are within reference range. SODIUM 140 135 - 146 mmol/L [facility] POTASSIUM 4.2 3.5 - 5.3 mmol/L [facility] [place] CHLORIDE 105 98 - 110 mmol/L [facility] [place] CO2 31 20 - 32 mmol/L [facility] [place] CALCIUM 9.2 8.6 - 10.4 mg/dL [facility] TOTAL PROTEIN 6.9 6.1 - 8.1 g/dL [facility] [place] ALBUMIN 3.9 3.6 - 5.1 g/dL [facility] [place] GLOBULIN 3.0 1.9 - 3.7 g/dL (calc) [facility] [place] ALBUMIN/GLOBULIN RATIO 1.3 1.0 - 2.5 (calc) [facility] BILIRUBIN TOTAL 0.4 0.2 - 1.2 mg/dL [facility] ALKALINE PHOSPHATASE 130 37 - 153 U/L [facility] AST 13 10 - 35 U/L [facility] [place] ALT 11 6 - 29 U/L [facility] [place] Comment: FASTING:YES FASTING: YES Test Performed at: [facility] [place] [address] [address] [phone] Brando Kenyon Blood 12/18/2024 8:23 AM WILLOW MACHINE OPERATOR 12/18/2024 8:23 AM WILLOW MACHINE OPERATOR Audelia Sterling MD CHEMISTRY ORDERABLES Final Result [facility] [phone] [facility] [place] [id number] [place] [address] from Last 3 Months Insurance BCBS OUT OF STATE Care Teams Top Screw Relationship Specialty [place] [address] [place] [address] PCP - General Family Practice 12/12/24
== END 2025-01-17 11:00 | disposition home or self-care (01) ==
PROVIDERS: PCP Family Medicine; Visit Provider Obstetrics & Gynecology Gynecology
DX: Z13.820 Encounter for screening for osteoporosis (principal); Z78.0 Asymptomatic menopausal state; M81.0 Age-related osteoporosis without current pathological fracture; M85.852 Other specified disorders of bone density and structure, left thigh; M85.851 Other specified disorders of bone density and structure, right thigh
CPT/HCPCS: 77080